=== PATIENT | male | born 1955 ===

== ENCOUNTER → 2017-07-03 | Outpatient (CLI) | payer BC ==
[2017-07-03 13:45] LABS: FLUID APPEARANCE CLOUDY; FLUID TYPE SYNOVIAL
[2017-07-03 13:57] LABS: FLUID VISCOSITY MODERATELY VISCOUS
== END ==
LOC: OD 11:56
PROVIDERS: ATTEND Physician Assistant
DX: M70.22 Olecranon bursitis, left elbow (principal)
CPT/HCPCS: 87070; 87075; 87205; 89050